=== PATIENT | female | born 1960 | race Caucasian/White ===

== ENCOUNTER 2016-05-20 18:10 | Emergency (ER) | payer OTHER ==
[~2016-05-20] VITALS: Ht 160 cm; Wt 71.4 kg
[2016-05-20 18:35] VITALS: Ht 160 cm; Wt 71.4 kg
[2016-05-20] MEDS ORDERED: ONDANSETRON 4 MG INJ IV STA (20:02)
[2016-05-20] MEDS ORDERED: SOD CHLORIDE 0.9% 1,000 ML IV STA (20:02)
[2016-05-20] MEDS ORDERED: DICLOFENAC SODIUM 37.5 MG/ML VIAL IV STA (20:27)
[2016-05-20] MEDS ORDERED: morphine 4 MG/ML VIAL IV STA (20:27)
[2016-05-20 21:04] LABS: ADD UMIC YES; URINE BILIRUBIN (Dip) 1+ (NEGATIVE); URINE BLOOD (Dip) NEGATIVE (NEGATIVE); URINE COLOR YELLOW (YELLOW); URINE GLUCOSE (Dip) NEGATIVE (NEGATIVE); URINE KETONES (Dip) NEGATIVE (NEGATIVE); URINE LEUKOCYTE ESTERASE (Dip) 1+ (NEGATIVE); URINE NITRITE (Dip) NEGATIVE (NEGATIVE); URINE TOTAL PROTEIN (Dip) NEGATIVE (NEGATIVE); URINE UROBILINOGEN (Dip) 1.0 E.U./dL (0.1-1.0)
[2016-05-20 21:25] LABS: POTASSIUM 3.8 mmol/L (3.5-5.1)
[2016-05-20 21:27] LABS: BILIRUBIN,INDIRECT 0.5 mg/dl (0-1.1); BILIRUBIN,TOTAL 0.5 mg/dl (0.2-1.3); CREATININE 0.7 mg/dl (0.44-1.00)
[2016-05-20 21:28] LABS: ALBUMIN/GLOBULIN RATIO 0.97; CALCIUM 9.4 mg/dl (8.4-10.2); TOTAL PROTEIN 8.1 g/dl (6.1-8.1)
[2016-05-20 21:38] LABS: BASOPHIL # 0.1 10^3/ul (0.0-0.1); BASOPHILS % 0.5 % (0.0-2.0); EOSINOPHILS # 0.2 10^3/ul (0.0-0.5); EOSINOPHILS % 1.6 % (0.0-7.0); HEMATOCRIT 43.5 % (37.0-47.0); HEMOGLOBIN 14.9 g/dl (12.0-16.0); LYMPHOCYTES # 2.2 10^3/ul (0.8-2.9); LYMPHOCYTES % 19.3 % (15.0-51.0); MEAN CORPUSCULAR HEMOGLOBIN 29.7 pg (29.0-33.0); MEAN CORPUSCULAR HGB CONC 34.2 g/dl (32.0-37.0); MEAN CORPUSCULAR VOLUME 86.9 fl (82.0-101.0); MEAN PLATELET VOLUME 8.8 fl (7.4-10.4); MONOCYTE # 0.9 10^3/ul (0.3-0.9); MONOCYTES % 7.5 % (0.0-11.0); NEUTROPHIL # 8.2 10^3/ul (1.6-7.5); NEUTROPHILS % 71.1 % (39.0-77.0); PLATELET COUNT 246 10^3/UL (140-440); RED BLOOD COUNT 5.01 10^6/ul (4.20-5.40); RED CELL DISTRIBUTION WIDTH 13.9 % (11.5-14.5); UNCORRECTED WBC 11.6 10^3/ul (4.8-10.8); WHITE BLOOD COUNT 11.6 10^3/ul (4.8-10.8)
[2016-05-20 21:39] LABS: CONDITION 1
--- NOTE | 2016-05-20 21:46 | RADRPT ---
PROCEDURE: US Abdomen (right upper quadrant). CLINICAL INDICATION: Right upper quadrant abdomen pain. TECHNIQUE: Multiple real-time longitudinal and transverse images of the right upper quadrant of e abdomen were acquired utilizing a curved array transducer. Images were reviewed on a high-resoluti on PACS workstation. COMPARISON: None FINDINGS: The liver is normal in size and echogenicity. There is no focal hepatic lesion. Color Doppler and pulsed Doppler sonography demonstrate normal an tegrade flow in the portal vein. Multiple gallstones are present in the gallbladder. There is no gallbladder wall thickening and the re is no fluid around the gallbladder. The bile ducts are normal with the common bile duct measuring 3.0 mm in diameter. The visualized portions of the pancreas are unremarkable with obscuration of the tail of the pancrea s. No free fluid is present. The right kidney measures 10.2 x 3.5 x 4.0 cm. There is normal echogenicity of the right kidney. There is no perinephric fluid collection. No hydronephrosis, mass, or calculus is seen. IMPRESSION: 1. Multiple gallstones in the gallbladder. No evidence of cholecystitis. 2. Otherwise normal right upper quadrant abdomen ultrasound. RPTAT: QQ .Adam Cervantes MD, MD Date Time Electronically viewed and signed by .Adam Cervantes MD, on 05/20/2016 21:46 .R/
[2016-05-20 22:04] LABS: BACTERIA,URINE RARE; ICTOTEST NEGATIVE (NEGATIVE); SQUAMOUS EPITHELIAL CELL,UR MODERATE; URINE RBCS 0-2 /HPF (0)
--- NOTE | 2016-05-20 22:46 | ERD ---
ER Documentation Chief Complaint Date/Time DATE: 05/20/16 TIME: 22:42 Chief Complaint sharp mid epigastric pain for past 3 days with vomting denies cp denies sob HPI This 55-year-old female nose that she has gallbladder disease and comes in for epigastric pain 3 days. She believes it is related to her gallbladder. She currently has no medications at home for pain or nausea. She does have some nausea. Has not vomited. He has no chest pain or shortness of breath. Has not had any fevers or chills. ROS All systems reviewed and are negative except as per history of present illness. Allergies Allergies: Coded Allergies: No Known Allergy (Unverified , 05/20/16) Physical Exam Vitals Vital Signs Date Time Temp Pulse Resp B/P Pulse Ox O2 Delivery O2 Flow Rate FiO2 05/20/16 18:35 98.4 80 18 135/71 98 Physical Exam Const: [] No distress Head: Atraumatic Eyes: Normal Conjunctiva ENT: Normal External Ears, Nose and Mouth. Neck: Full range of motion..~ No meningismus. Resp: Clear to auscultation bilaterally Cardio: Regular rate and rhythm, no murmurs Abd: Soft, moderate right upper quadrant epigastric tenderness without guarding or rebound, non distended. Normal bowel sounds Skin: No petechiae or rashes Back: No midline or flank tenderness Ext: No cyanosis, or edema Neur: Awake and alert Psych: Normal Mood and Affect Result Diagram: 05/20/16204405/20/162044 Results 24 hrs Laboratory Tests Test 05/20/16 20:32 05/20/16 20:45 Urine Bacteria RARE Urine Bilirubin 1+ Urine Clarity CLEAR Urine Color YELLOW Urine Glucose NEGATIVE% Urine Hemoglobin NEGATIVE Urine Ictotest NEGATIVE Urine Ketones NEGATIVE Urine Leukocyte Esterase 1+ Urine Microscopic RBC 0-2/HPF Urine Microscopic WBC 10-25/HPF Urine Nitrite NEGATIVE Urine Specific [place] >=1.030 Urine Squamous Epithelial Cells MODERATE Urine Total Protein NEGATIVE Urine Urobilinogen 1.0 E.U./dL Urine pH 5.0 Alanine Aminotransferase (ALT/SGPT) 314IU/L Albumin 4.0g/dl Albumin/Globulin Ratio 0.97 Alkaline Phosphatase 171IU/L Anion Gap 16 Aspartate Amino Transf (AST/SGOT) 321IU/L Basophils # 0.110^3/ul Basophils % 0.5% Blood Urea Nitrogen 15mg/dl Calcium Level 9.4mg/dl Carbon Dioxide Level 27mmol/L Chloride Level 106mmol/L Creatinine 0.70mg/dl Direct Bilirubin 0.00mg/dl Eosinophils # 0.210^3/ul Eosinophils % 1.6% Globulin 4.10g/dl Glucose Level 87mg/dl Hematocrit 43.5% Hemoglobin 14.9g/dl Indirect Bilirubin 0.5mg/dl Lipase 210U/L Lymphocytes # 2.210^3/ul Lymphocytes % 19.3% Mean Corpuscular Hemoglobin 29.7pg Mean Corpuscular Hemoglobin Concent 34.2g/dl Mean Corpuscular Volume 86.9fl Mean Platelet Volume 8.8fl Monocytes # 0.910^3/ul Monocytes % 7.5% Neutrophils # 8.210^3/ul Neutrophils % 71.1% Nucleated Red Blood Cells # 0.010^3/ul Nucleated Red Blood Cells % 0.0/100WBC Platelet Count 37119^3/UL Potassium Level 3.8mmol/L Red Blood Count 5.0110^6/ul Red Cell Distribution Width 13.9% Sodium Level 145mmol/L Total Bilirubin 0.5mg/dl Total Protein 8.1g/dl White Blood Count 11.610^3/ul Current Medications Medications (Trade) Dose Ordered Sig/Sandrine Route PRN Reason Start Time Stop Time Status Last Admin Dose Admin Sodium Chloride (NS) 1,000 ml @ 1,000 mls/hr Q1H STAT IV 05/20/16 20:02 05/20/16 21:01 DC 05/20/16 20:53 Ondansetron HCl (Zofran Inj) 4 mg ONCE STAT IV 05/20/16 20:02 05/20/16 20:04 DC 05/20/16 20:52 Morphine Sulfate (morphine) 4 mg ONCE STAT IV 05/20/16 20:27 05/20/16 20:29 DC 05/20/16 20:53 Diclofenac Sodium (Dyloject) 37.5 mg ONCE STAT IV 05/20/16 20:27 05/20/16 20:29 DC 05/20/16 20:52 Procedures/MDM Biliary colic with mild elevated liver enzymes and 55-year-old female. She was given morphine, diclofenac IV as well as Zofran emergency room. She was complete asymptomatic after that. Ultrasound shows no signs of acute cholecystitis she does have elevated liver enzymes. She's had no fevers or chills and I doubt acute cholecystitis at this time. I'm going to discharge her with [place], naproxen, Zofran ODT and Macrobid.. Analysis shows evidence of UTI with 10-25 white blood cells per high-power field. Is artery began established care with the general surgeon. Discharge with primary care and surgery follow- up as well as term precautions to the ER for any severe breakthrough pain or fevers. [place] ultrasound interpretation: Gallstones with no signs of obstruction, no dilated duct appears colic fluid, no wall thickening Departure Diagnosis: Primary Impression: Biliary colic Additional Impressions: Acute abdominal pain UTI (urinary tract infection) Condition: Stable OLIVA CUTLER DO May 20, 2016 22:46
[2016-05-20] MEDS ORDERED: ONDA4TAB14 PO (22:47)
[2016-05-20] MEDS ORDERED: HYDR-906 PO (22:47)
[2016-05-20] MEDS ORDERED: NAPR-688 PO (22:47)
[2016-05-20 23:10] VITALS: BP 125/76; PULSE 77; RESP 16; TEMP 97.6
== END 2016-05-20 23:10 | disposition home or self-care (01) ==
LOC: E/R 18:10
DX: K80.50 Calculus of bile duct without cholangitis or cholecystitis without obstruction (principal); R10.11 Right upper quadrant pain; N39.0 Urinary tract infection, site not specified; R11.10 Vomiting, unspecified
CPT/HCPCS: 76705; 80053; 81001; 83690; 85025; J2270; J2405; J7030; Z7610; 36415; 81003; 96374; 96375

== ENCOUNTER 2016-05-22 17:56 | Inpatient (IN) | payer OTHER ==
[~2016-05-22] VITALS: Ht 154.9 cm; Wt 70.5 kg
[~2016-05-22 17:56] MED LIST: HYDR-906 PO; NAPR-688 PO; ONDA4TAB14 PO
[2016-05-22 18:36] VITALS: Ht 154.9 cm; Wt 70.5 kg
[2016-05-22] MEDS ORDERED: SOD CHLORIDE 0.9% 1,000 ML IV STA (22:06)
[2016-05-22] MEDS ORDERED: morphine 4 MG/ML VIAL IV STA (22:06)
[2016-05-22] MEDS ORDERED: ONDANSETRON 4 MG INJ IV STA (22:06)
[2016-05-22 22:33] LABS: BASOPHIL # 0.1 10^3/ul (0.0-0.1); BASOPHILS % 0.8 % (0.0-2.0); EOSINOPHILS # 0.2 10^3/ul (0.0-0.5); EOSINOPHILS % 1.5 % (0.0-7.0); HEMATOCRIT 43.5 % (37.0-47.0); HEMOGLOBIN 14.4 g/dl (12.0-16.0); LYMPHOCYTES # 3.3 10^3/ul (0.8-2.9); LYMPHOCYTES % 29.7 % (15.0-51.0); MEAN CORPUSCULAR HEMOGLOBIN 29.2 pg (29.0-33.0); MEAN CORPUSCULAR HGB CONC 33.1 g/dl (32.0-37.0); MEAN CORPUSCULAR VOLUME 88.3 fl (82.0-101.0); MEAN PLATELET VOLUME 8.6 fl (7.4-10.4); MONOCYTE # 0.9 10^3/ul (0.3-0.9); MONOCYTES % 7.9 % (0.0-11.0); NEUTROPHIL # 6.7 10^3/ul (1.6-7.5); NEUTROPHILS % 60.1 % (39.0-77.0); PLATELET COUNT 268 10^3/UL (140-440); RED BLOOD COUNT 4.93 10^6/ul (4.20-5.40); RED CELL DISTRIBUTION WIDTH 13.7 % (11.5-14.5); UNCORRECTED WBC 11.2 10^3/ul (4.8-10.8); WHITE BLOOD COUNT 11.2 10^3/ul (4.8-10.8)
[2016-05-22 22:40] LABS: CONDITION 1
[2016-05-22 22:42] LABS: ALBUMIN/GLOBULIN RATIO 0.95; BILIRUBIN,DIRECT 0.3 mg/dl (0.00-0.20); BILIRUBIN,INDIRECT 0.6 mg/dl (0-1.1); BILIRUBIN,TOTAL 0.9 mg/dl (0.2-1.3); CREATININE 0.69 mg/dl (0.44-1.00); TOTAL PROTEIN 8.2 g/dl (6.1-8.1)
[2016-05-22 22:43] LABS: CALCIUM 9.1 mg/dl (8.4-10.2)
--- NOTE | 2016-05-22 23:58 | ERA ---
ER Documentation Chief Complaint Date/Time DATE: 05/22/16 TIME: 23:57 Chief Complaint epigastric pain with nausea, hx of gallstones, was here on Saturday. HPI This is a 55-year-old female who comes in with complaints of epigastric abdominal pain with associated nausea. Pain is mild to moderate intensity. Nonradiating. Patient has a history of gallstones and was seen here Saturday for similar complaints. ROS All systems reviewed and are negative except as per history of present illness. Medications Home Meds Active Scripts Ondansetron (Ondansetron Odt) 4 Mg Tab.rapdis, 4 MG PO Q6H Y for NAUSEA AND/OR VOMITING, #10 TAB Prov:OLIVA CUTLER DO 05/20/16 Naproxen* (Naproxen*) 500 Mg Tablet, 500 MG PO BID Y for PAIN, #20 TAB Prov:OLIVA CUTLER DO 05/20/16 Hydrocodone/Acetaminophen ([place] 5-325 Tablet) 1 Each Tablet, 1 EACH PO Q6 for SEVERE PAIN LEVEL 7-10, #20 TAB Prov:OLIAV CUTLER DO 05/20/16 Allergies Allergies: Coded Allergies: No Known Allergy (Unverified , 05/22/16) PMhx/Soc History of Surgery: Yes (, bilat mastoid lumpectomy) Anesthesia Reaction: No Hx Neurological Disorder: No Hx Respiratory Disorders: No Hx Cardiac Disorders: No Hx Psychiatric Problems: No Hx Miscellaneous Medical Probl: Yes (Gallstones ) Hx Alcohol Use: No Hx Substance Use: No Hx Tobacco Use: No Smoking Status: Never smoker Physical Exam Vitals Vital Signs Date Time Temp Pulse Resp B/P Pulse Ox O2 Delivery O2 Flow Rate FiO2 05/22/16 18:36 98.8 77 18 130/78 97 Physical Exam Const: [] Head: Atraumatic Eyes: Normal Conjunctiva ENT: Normal External Ears, Nose and Mouth. Neck: Full range of motion..~ No meningismus. Resp: Clear to auscultation bilaterally Cardio: Regular rate and rhythm, no murmurs Abd: Soft, non tender, non distended. Normal bowel sounds Skin: No petechiae or rashes Back: No midline or flank tenderness Ext: No cyanosis, or edema Neur: Awake and alert Psych: Normal Mood and Affect Result Diagram: 1/0 05/22/16 2220 Results 24 hrs Laboratory Tests Test 05/22/16 22:20 Alanine Aminotransferase (ALT/SGPT) 397IU/L Albumin 4.0g/dl Albumin/Globulin Ratio 0.95 Alkaline Phosphatase 193IU/L Anion Gap 17 Aspartate Amino Transf (AST/SGOT) 314IU/L Basophils # 0.110^3/ul Basophils % 0.8% Blood Urea Nitrogen 11mg/dl Calcium Level 9.1mg/dl Carbon Dioxide Level 29mmol/L Chloride Level 102mmol/L Creatinine 0.69mg/dl Direct Bilirubin 0.30mg/dl Eosinophils # 0.210^3/ul Eosinophils % 1.5% Globulin 4.20g/dl Glucose Level 95mg/dl Hematocrit 43.5% Hemoglobin 14.4g/dl Indirect Bilirubin 0.6mg/dl Lipase 171U/L Lymphocytes # 3.310^3/ul Lymphocytes % 29.7% Mean Corpuscular Hemoglobin 29.2pg Mean Corpuscular Hemoglobin Concent 33.1g/dl Mean Corpuscular Volume 88.3fl Mean Platelet Volume 8.6fl Monocytes # 0.910^3/ul Monocytes % 7.9% Neutrophils # 6.710^3/ul Neutrophils % 60.1% Nucleated Red Blood Cells # 0.010^3/ul Nucleated Red Blood Cells % 0.0/100WBC Platelet Count 77818^3/UL Potassium Level 4.0mmol/L Red Blood Count 4.9310^6/ul Red Cell Distribution Width 13.7% Sodium Level 144mmol/L Total Bilirubin 0.9mg/dl Total Protein 8.2g/dl White Blood Count 11.210^3/ul Current Medications Medications (Trade) Dose Ordered Sig/Sandrine Route PRN Reason Start Time Stop Time Status Last Admin Dose Admin Sodium Chloride (NS) 1,000 ml @ 1,000 mls/hr Q1H STAT IV 05/22/16 22:06 05/22/16 23:05 DC 05/22/16 22:21 Morphine Sulfate (morphine) 4 mg ONCE STAT IV 05/22/16 22:06 05/22/16 22:07 DC 05/22/16 22:22 Ondansetron HCl (Zofran Inj) 4 mg ONCE STAT IV 05/22/16 22:06 1/31/17 22:07 DC 05/22/16 22:21 Procedures/MDM Medical decision-making: This is a 55-year-old female who has an ultrasound showing multiple gallstones from 2 days ago. LFTs remain elevated 2 days post her last visit. At this point patient is to be admitted for early intervention. Patient will be admitted to hospitalist. Surgeon on-call has been notified as well. Departure Diagnosis: Primary Impression: Abdominal pain Qualified Code: R10.11 - Right upper quadrant abdominal pain Additional Impressions: Transaminitis Biliary colic MEREDITH WAY May 22, 2016 23:58
[2016-05-23 00:28] VITALS: TEMP 98.1
[2016-05-23 01:18] VITALS: BP 133/66; RESP 16
[2016-05-23] MEDS ORDERED: KETOROLAC 15 MG INJ IV PRN (02:00)
[2016-05-23] MEDS ORDERED: ACETAMINOPHEN 650 MG SUPP PR PRN (02:00)
[2016-05-23] MEDS ORDERED: morphine 4 MG/ML VIAL IV PRN (02:00)
[2016-05-23] MEDS: DEXTROSE 5%-0.45% NACL 1,000 ML IV SCH ×3 (02:33→16:47)
[2016-05-23 06:23] LABS: BASOPHILS % 0.4 % (0.0-2.0); EOSINOPHILS # 0.2 10^3/ul (0.0-0.5); EOSINOPHILS % 2.3 % (0.0-7.0); HEMATOCRIT 37.9 % (37.0-47.0); HEMOGLOBIN 12.6 g/dl (12.0-16.0); LYMPHOCYTES # 2.9 10^3/ul (0.8-2.9); LYMPHOCYTES % 40.8 % (15.0-51.0); MEAN CORPUSCULAR HEMOGLOBIN 29.4 pg (29.0-33.0); MEAN CORPUSCULAR HGB CONC 33.2 g/dl (32.0-37.0); MEAN CORPUSCULAR VOLUME 88.6 fl (82.0-101.0); MEAN PLATELET VOLUME 8.7 fl (7.4-10.4); MONOCYTE # 0.7 10^3/ul (0.3-0.9); MONOCYTES % 9.5 % (0.0-11.0); NEUTROPHIL # 3.3 10^3/ul (1.6-7.5); PLATELET COUNT 239 10^3/UL (140-440); RED BLOOD COUNT 4.28 10^6/ul (4.20-5.40); RED CELL DISTRIBUTION WIDTH 13.6 % (11.5-14.5)
[2016-05-23 06:41] LABS: CONDITION 1
[2016-05-23 06:50] LABS: ALBUMIN 3.2 g/dl (3.3-4.9)
[2016-05-23 06:51] LABS: POTASSIUM 4.3 mmol/L (3.5-5.1)
[2016-05-23 06:53] LABS: ALBUMIN/GLOBULIN RATIO 1.06; BILIRUBIN,INDIRECT 0.5 mg/dl (0-1.1); BILIRUBIN,TOTAL 0.5 mg/dl (0.2-1.3); CREATININE 0.65 mg/dl (0.44-1.00); TOTAL PROTEIN 6.2 g/dl (6.1-8.1)
[2016-05-23 06:54] LABS: CALCIUM 8.4 mg/dl (8.4-10.2)
[2016-05-23 08:11] VITALS: BP 106/63; RESP 18
--- NOTE | 2016-05-23 10:01 | HP ---
DATE OF ADMISSION: 05/22/2016 TIME SEEN: 4 a.m. CHIEF COMPLAINT: Abdominal pain. HISTORY OF PRESENT ILLNESS: The patient is a 55-year-old female with a history of gallstones, C-sec tion, and breast cyst removal who presented to the emergency department with abdominal pain and naus ea. The patient actually came here to the ER 2 days ago with abdominal pain of 3 days' duration and vomiting. At that time, a right upper quadrant ultrasound was done and it showed multiple gallston es in the gallbladder without evidence of cholecystitis. At that time, she was also diagnosed with UTI. The patient, however, was discharged to follow up with her primary care doctor, which was a [facility] followup; however, the pain persisted and as such she came here for evaluation. The patient d id have abnormal liver enzymes with AST and ALT in the 300s 2 days ago and even now pretty much the same, in the 300s. Hemoglobin is within normal limits. Lipase is also within normal limits. A mayank gical consult was placed with Dr. Morrow, and the patient was admitted for further management. REVIEW OF SYSTEMS: A 12-point review was performed and negative except as mentioned in the HPI. PAST MEDICAL HISTORY: Per HPI. PAST SURGICAL HISTORY: and breast cyst removal. SOCIAL HISTORY: Denied history of tobacco, alcohol, or illicit drug use. ALLERGIES: NO KNOWN DRUG ALLERGIES. MEDICATIONS: The patient was recently given: 1. Zofran. 2. [place]. 3. Naproxen. PHYSICAL EXAMINATION: VITAL SIGNS: Stable. GENERAL: No acute distress, sleepy but arousable, and answering questions appropriately. HEENT: No obvious head deformity. Pupils react to light. Extraocular muscles intact. CARDIOVASCULAR: Regular rate and rhythm. No extra sounds. LUNGS: Clear. ABDOMEN: Soft. There is tenderness to palpation mainly in the right upper quadrant area and also i n the epigastric area with no guarding, no rigidity, no rebound tenderness. There are positive gilson l sounds. EXTREMITIES: No edema. NEUROLOGIC: No focal deficits. LABORATORY: AST 314, ALT 397, alkaline phosphatase 193. WBC 11.2. Otherwise, CBC and CMP within n ormal limits. IMAGING: From 05/20/2016 shows multiple gallstones in the gallbladder. IMPRESSION: 1. Cholelithiasis with cholecystitis. 2. Abnormal liver enzymes, most likely secondary to above. 3. Mild leukocytosis, secondary to above. PLAN: N.p.o. with IV fluids. We will provide pain medication and antiemetics as needed. Currently , she is awaiting surgical evaluation. Will order a HIDA scan and MRCP. GI consult as needed. Further workup and management per clinical course. Dictated By: MEREDITH LEONE/IGNACIO Conf#: [id number] DID#: [id number]
--- NOTE | 2016-05-23 12:49 | RADRPT ---
PROCEDURE: HIDA scan CLINICAL INDICATION: 55 -year-old patient with abdominal pain. TECHNIQUE: Following the intravenous injection of 8.0 mCi of Tc-99m mebrofenin, multiple images of the abdomen were obtained up to 90 minutes post injection. COMPARISON: No prior studies. FINDINGS: The liver is promptly visualized, demonstrates homogeneous distribution of radionuclide. There is visualization of the common bile duct and gastrointestinal activity within normal time. The gallbladder is not visualized up to 90 minutes post injection. IMPRESSION: 1. Nonvisualization of the gallbladder up to 90 minutes post injection. 2. No evidence of common bile duct obstruction. Delayed images to follow. RPTAT: HH .Giselle Acuña MD, Date Time Electronically viewed and signed by .Giselle Acuña MD, on 05/23/2016 12:48 .L/
--- NOTE | 2016-05-23 16:39 | PN ---
Date/Time of Note Date/Time of Note DATE: 05/23/16 TIME: 16:30 Assessment/Plan VTE Prophylaxis VTE Prophylaxis Intervention: SCD's Lines/Catheters IV Catheter Type (from Nrs): Peripheral IV Assessment/Plan Chief Complaint/Hosp Course 1. Cholelithiasis with likely cholecystitis -HIDA is positive, F/U on MRCP -Surgery consult with Dr Morrow -Echo and EKG as pt has an unclear Hx of a Cardiac issue 2. Abnormal liver enzymes -MRCP to eval for docolithiasis -GI consult 3. Mild leukocytosis-resolved PPx- SCD's Problems: Subjective 24 Hr Interval Summary Constitutional: no complaints Exam/Review of Systems Vital Signs Vitals Vital Signs Date Time Temp Pulse Resp B/P Pulse Ox O2 Delivery O2 Flow Rate FiO2 05/23/16 08:11 98.0 67 18 106/63 97 05/23/16 00:28 Room Air Intake and Output 05/22/16 05/22/16 05/23/16 15:00 23:00 07:00 Intake Total 300 ml Balance 300 ml Exam Constitutional: alert, oriented Respiratory: clear to auscultation Cardiovascular: regular rate and rhythm Gastrointestinal: soft, No distended Musculoskeletal: nl extremities to inspection Results Result Diagram: 05/23/16 0535 05/23/16 0535 Results 24 hrs Laboratory Tests Test 05/22/16 22:20 05/23/16 05:35 Alanine Aminotransferase (ALT/SGPT) 397 H 365 H Albumin 4.0 3.2 L Albumin/Globulin Ratio 0.95 1.06 Alkaline Phosphatase 193 H 173 H Anion Gap 17 H 12 Aspartate Amino Transf (AST/SGOT) 314 H 315 H Basophils # 0.1 0.0 Basophils % 0.8 0.4 Blood Urea Nitrogen 11 10 Calcium Level 9.1 8.4 Carbon Dioxide Level 29 28 Chloride Level 102 107 Creatinine 0.69 0.65 Direct Bilirubin 0.30 H 0.00 # Eosinophils # 0.2 0.2 Eosinophils % 1.5 2.3 Globulin 4.20 H 3.00 Glucose Level 95 90 Hematocrit 43.5 37.9 Hemoglobin 14.4 12.6 Indirect Bilirubin 0.6 0.5 Lipase 171 Lymphocytes # 3.3 H 2.9 Lymphocytes % 29.7 40.8 Mean Corpuscular Hemoglobin 29.2 29.4 Mean Corpuscular Hemoglobin Concent 33.1 33.2 Mean Corpuscular Volume 88.3 88.6 Mean Platelet Volume 8.6 8.7 Monocytes # 0.9 0.7 Monocytes % 7.9 9.5 Neutrophils # 6.7 3.3 Neutrophils % 60.1 47.0 Nucleated Red Blood Cells # 0.0 0.0 Nucleated Red Blood Cells % 0.0 0.0 Platelet Count 268 239 Potassium Level 4.0 4.3 Red Blood Count 4.93 4.28 Red Cell Distribution Width 13.7 13.6 Sodium Level 144 143 Total Bilirubin 0.9 0.5 Total Protein 8.2 H 6.2 # White Blood Count 11.2 H 7.0 # Medications Medications Current Medications Dextrose/Sodium Chloride (D5-1/2ns) 1,000 ml @ 100 mls/hr Q10H IV Last administered on 05/23/16 02:33; Admin Dose 100 MLS/HR; Start 05/23/16 at 02:00 Morphine Sulfate (morphine) 3 mg Q4H PRN IV PAIN; Start 05/23/16 at 02:00 Ondansetron HCl (Zofran Inj) 4 mg Q6H PRN IV NAUSEA AND/OR VOMITING; Start 05/23 at 02:00 Ketorolac Tromethamine (Toradol) 15 mg Q6H PRN IV PAIN; Start 05/23/16 at 02:00 ; Stop 05/26/16 at 01:59 Acetaminophen (Tylenol Supp) 650 mg Q6H PRN [place] FEVER GREATER THAN 100.4; Start 05/23/16 at 02:00 LUISITO NGUYEN May 23, 2016 16:39
[2016-05-23 19:00] VITALS: BP 126/69; RESP 16
--- NOTE | 2016-05-23 22:13 | CONS ---
[facility] INITIAL INPATIENT CONSULTATION NOTE DATE OF CONSULTATION: 05/23/2016 PLACE OF SERVICE: [facility], 6th floor. ASSESSMENT AND PLAN: A very pleasant 55-year-old lady with comorbidity of BMI 29.4 and previous and breast cyst removal with what appears to be acute cholecystitis, plus or minus choledocholithiasis. Given the elevated alkaline phosphatase, it would be important for us to evaluate the common bile duct to make sure there is no choledocholithiasis. For this reason, I recommended an MRCP as well as consideration for GI consultation. If the common bile duct can be demonstrated to be clear, the patient can certainly benefit from a laparoscopic cholecystectomy, which should be done during this admission. Note that I personally discussed the patient's care with Dr. Carpio who graciously agreed to have me continue caring for the patient and doing the operation. I also cleared this by the patient herself and her family. I answered all their questions and I believe that they understand the recommendations and agree with the plans. With above assessment, I recommend the followin. Continue with MRCP. 2. Consider gastroenterology consultation. 3. Once common bile duct has been adequately evaluated and shown to be cleared to have the patient undergo a laparoscopic, possible open cholecystectomy. 4. Possible consideration for cardiac evaluation. Thank you again for allowing me to participate in the care of this very pleasant lady and her wonderful family. If there are any questions, please call me at [phone]. TOTAL VISIT TIME: 45 minutes of which more than half was spent in [id number] discussion with the patient, discussions with her , as well as coordination of care between multiple physicians and providers. DATE OF ADMISSION: 05/22/2016 HISTORY OF PRESENT ILLNESS: The patient is a very pleasant 55-year-old lady with comorbidity of BMI 29.4, cholelithiasis, previous , and breast cyst removal, who was admitted through the emergency department at [facility] with abdominal pain associated with nausea. Note that the patient has had on and off abdominal pain for the last number of weeks. Incidentally, she was evaluated by one of our colleagues, Dr. Wilbert Carpio, in April and the plan was for the patient to undergo an elective laparoscopic cholecystectomy, after preoperative workup that she was requested to include cardiac clearance given the patient's abnormality seen on previous workup ( details are scant). The patient herself had experienced progressively increased pain enough to warrant a visit to the emergency department. In the emergency department, the patient was found to have a white blood cell count of 11.2 and elevated AST and ALT in the 300s, alkaline phosphatase of 193. Workup also included a gallbladder ultrasound that was done 2 days prior, during another visit to the emergency department, that showed presence of gallstones and no evidence of cholecystitis. I was kindly asked to consult. During my visit, the patient reported no significant pain and that she was having adequate control with pain medications. No other major complaints. PAST MEDICAL HISTORY: BMI 29.4. PAST SURGICAL HISTORY: 1. Status post breast cyst removal. 2. Status post section. ALLERGIES: NO KNOWN DRUG ALLERGIES. MEDICATIONS: 1. [place]. 2. Naprosyn. 3. Ondansetron. SOCIAL HISTORY: The patient is and lives with her family. She does not report any smoking, drinking, or intravenous drug use. FAMILY HISTORY: No major medical, surgical, or oncologic history reported in the family. REVIEW OF SYSTEMS: Other than the above-mentioned, there are no other pertinent positives or pertinent negatives in a complete 14-point review of systems. PHYSICAL EXAMINATION: GENERAL: The patient appears to be a very pleasant lady of [place] descent, appearing stated age, lying in bed comfortably, and in no acute distress. BMI is 29.4. VITAL SIGNS: She is afebrile and her vital signs are stable. HEENT: Normocephalic and atraumatic. Extraocular muscles and hearing are grossly intact bilaterally and symmetrically. Sclerae are nonicteric. Oral cavity is clear; oral mucosa appeared to be pink and moist. Dentition: fair. NECK: Supple. There is no lymphadenopathy or JVD. There is no submental, submandibular or supraclavicular lymphadenopathy. CHEST: Rises symmetrically with each breath; patient is breathing comfortably. There are no audible wheezes, rales or rhonchi on the gross exam. HEART: HPulse is regular and palpable on the right wrist. Capillary refill was normal. Carotid pulses are palpable bilaterally and symmetrically in the neck. EXTREMITIES: Lower extremities contain no pitting edema around the ankles bilaterally and symmetrically. ABDOMEN: Soft, nondistended, and minimally tender in the right upper quadrant. There are no peritoneal signs or guarding. No evidence of organomegaly, caput medusae, engorged subcutaneous veins, or ascites. SKIN: Appears to be pink and feels warm to touch. NEUROLOGIC: Awake, alert, and follows commands appropriately. LABORATORY DATA: Reviewed above. IMAGING: Reviewed above. Note that I personally reviewed all the images and I agree in general with their overall reported findings. Note that the patient also had a HIDA scan on 05/23/2016 that showed nonvisualization of the gallbladder. We can see tracing of the bile going into the small intestine. Dictated By: SHAUN MAY/IGNACIO Conf#: [id number] DID#: [id number]
[2016-05-24] MEDS: DEXTROSE 5%-0.45% NACL 1,000 ML IV SCH ×2 (03:03→14:13)
[2016-05-24 06:03] LABS: BASOPHILS % 0.7 % (0.0-2.0); EOSINOPHILS # 0.2 10^3/ul (0.0-0.5); EOSINOPHILS % 3.8 % (0.0-7.0); HEMATOCRIT 39.5 % (37.0-47.0); HEMOGLOBIN 13.1 g/dl (12.0-16.0); LYMPHOCYTES # 2.3 10^3/ul (0.8-2.9); LYMPHOCYTES % 36.7 % (15.0-51.0); MEAN CORPUSCULAR HEMOGLOBIN 29.4 pg (29.0-33.0); MEAN CORPUSCULAR HGB CONC 33.2 g/dl (32.0-37.0); MEAN CORPUSCULAR VOLUME 88.3 fl (82.0-101.0); MEAN PLATELET VOLUME 8.5 fl (7.4-10.4); MONOCYTE # 0.5 10^3/ul (0.3-0.9); MONOCYTES % 7.8 % (0.0-11.0); NEUTROPHIL # 3.2 10^3/ul (1.6-7.5); PLATELET COUNT 242 10^3/UL (140-440); RED BLOOD COUNT 4.48 10^6/ul (4.20-5.40); RED CELL DISTRIBUTION WIDTH 13.6 % (11.5-14.5); UNCORRECTED WBC 6.2 10^3/ul (4.8-10.8); WHITE BLOOD COUNT 6.2 10^3/ul (4.8-10.8)
[2016-05-24 06:19] LABS: ALBUMIN 3.2 g/dl (3.3-4.9); POTASSIUM 4.6 mmol/L (3.5-5.1)
[2016-05-24 06:21] LABS: CREATININE 0.71 mg/dl (0.44-1.00)
[2016-05-24 06:22] LABS: ALBUMIN/GLOBULIN RATIO 0.88; BILIRUBIN,INDIRECT 0.5 mg/dl (0-1.1); BILIRUBIN,TOTAL 0.5 mg/dl (0.2-1.3); TOTAL PROTEIN 6.8 g/dl (6.1-8.1)
[2016-05-24 07:02] LABS: CONDITION 1
[2016-05-24 07:49] VITALS: BP 138/65; RESP 16
--- NOTE | 2016-05-24 09:31 | CONS ---
Date/Time of Note Date/Time of Note DATE: 05/24/16 TIME: 09:25 Assessment/Plan Assessment/Plan Additional Assessment/Plan Abdominal pain Nausea Vomiting Evaluate cholelithiasis versus with or without choledocholithiasis * MRCP to evaluate for choledocholithiasis, in process * Trend lipase and amylase * Surgery following * HIDA: 05-23-16: 1. Nonvisualization of the gallbladder up to 90 minutes post injection. 2. No evidence of common bile duct obstruction. * ERCP if clinically indicated. Patient advised of risks/benefits/alternatives of procedure and is agreeable to proceed Transaminitis * Likely secondary to above. * Acute hepatitis panel * Trend LFTs Further recommendations depend on clinical course Patient seen in collaboration with Dr. Lima Consultation Date/Type/Reason Admit Date/Time May 22, 2016 at 23:38 Initial Consult Date Reason for Consultation Abdominal pain 24 HR Interval Summary Free Text/Dictation 55-year-old Nepali-speaking female presented to ED with complaints of abdominal pain, nausea, and nonbloody bilious vomiting 1 episode . Patient has PMH of gallstones, , and breast cyst removal. Patient was previously treated in ED 2 days ago for same complaints and was treated for UTI and discharged home. Patient was in the process of getting evaluation for outpatient cholecystectomy. At bedside, patient denies abdominal pain, nausea, vomiting. She states symptoms are present only when she is eating and she is currently n.p.o. Patient denies diarrhea, hematemesis, sick contacts, travel outside the [place], chest pain, and shortness of breath. Patient presently waiting for MRCP and cardiac evaluation. Exam/Review of Systems Vital Signs Vitals Vital Signs Date Time Temp Pulse Resp B/P Pulse Ox O2 Delivery O2 Flow Rate FiO2 05/24/16 07:49 98.0 63 16 138/65 98 05/23/16 00:28 Room Air Intake and Output 05/23/16 05/23/16 05/24/16 15:00 23:00 07:00 Intake Total 950 ml 1000 ml Output Total 3 ml 1300 ml Balance 947 ml -300 ml Exam Constitutional: alert, oriented, well developed Psych: nl mood/affect Head: normocephalic Eyes: EOMI, nl conjunctiva, nl lids, nl sclera ENMT: nl external ears & nose, nl lips & teeth, nl nasal mucosa & septum Respiratory: normal air movement Cardiovascular: regular rate and rhythm Gastrointestinal: non-tender, soft Neurological: CASINO CASHIER II-XII intact Results Result Diagram: 05/24/16 0510 05/24/16 0510 Results 24 hrs Laboratory Tests Test 05/24/16 05:10 Alanine Aminotransferase (ALT/SGPT) 264 H Albumin 3.2 L Albumin/Globulin Ratio 0.88 Alkaline Phosphatase 152 H Anion Gap 14 Aspartate Amino Transf (AST/SGOT) 113 H Basophils # 0.0 Basophils % 0.7 Blood Urea Nitrogen 6 L Calcium Level 9.0 Carbon Dioxide Level 28 Chloride Level 108 Creatinine 0.71 Direct Bilirubin 0.00 Eosinophils # 0.2 Eosinophils % 3.8 Globulin 3.60 H Glucose Level 111 Hematocrit 39.5 Hemoglobin 13.1 Indirect Bilirubin 0.5 Lymphocytes # 2.3 Lymphocytes % 36.7 Magnesium Level 2.0 Mean Corpuscular Hemoglobin 29.4 Mean Corpuscular Hemoglobin Concent 33.2 Mean Corpuscular Volume 88.3 Mean Platelet Volume 8.5 Monocytes # 0.5 Monocytes % 7.8 Neutrophils # 3.2 Neutrophils % 51.0 Nucleated Red Blood Cells # 0.0 Nucleated Red Blood Cells % 0.0 Platelet Count 242 Potassium Level 4.6 Red Blood Count 4.48 Red Cell Distribution Width 13.6 Sodium Level 145 H Total Bilirubin 0.5 Total Protein 6.8 White Blood Count 6.2 Medications Medications Current Medications Dextrose/Sodium Chloride (D5-1/2ns) 1,000 ml @ 100 mls/hr Q10H IV Last administered on 05/24/16 03:03; Admin Dose 100 MLS/HR; Start 05/23/16 at 02:00 Morphine Sulfate (morphine) 3 mg Q4H PRN IV PAIN; Start 05/23/16 at 02:00 Ondansetron HCl (Zofran Inj) 4 mg Q6H PRN IV NAUSEA AND/OR VOMITING; Start 05/23 at 02:00 Ketorolac Tromethamine (Toradol) 15 mg Q6H PRN IV PAIN; Start 05/23/16 at 02:00 ; Stop 05/26/16 at 01:59 Acetaminophen (Tylenol Supp) 650 mg Q6H PRN [place] FEVER GREATER THAN 100.4; Start 05/23/16 at 02:00 MARIE OSBORN May 24, 2016 09:30
[2016-05-24 11:59] LABS: HAAIG REFLEX REFLEX FILED
[2016-05-24 12:22] LABS: AMYLASE 61 U/L (11-123)
[2016-05-24 13:13] LABS: HEPATITIS B CORE ANTIBODY NEGATIVE (NEGATIVE)
--- NOTE | 2016-05-24 17:14 | PN ---
Date/Time of Note Date/Time of Note DATE: 05/24/16 TIME: 17:09 Assessment/Plan Lines/Catheters IV [facility]ter Type (from [facility]): Peripheral IV Assessment/Plan Assessment/Plan [facility] Progress Note Date of Service: 05/24/16 Today's Impression & Plan: Overall stable. Awaiting results of MRCP to schedule patient for either ERCP or for lap alicia only. Answered all questions. With above assessment, I've recommended the following for today: 1. Cont current plans 2. ERCP followed by lap alicia if indicated by MRCP; otherwise, lap alicia only Thank you again for your great care of this very pleasant patient and wonderful family. If there are any questions, please feel free to call me at [phone]. TOTAL VISIT TIME: 20 minutes of which more than half was spent in [id number] discussion with the patient, possibly including family, as well as coordination of care between multiple physicians and providers. Disclaimer: Inadvertent spelling or grammatical errors are likely due to EHR/ dictation software use and do not reflect on the overall quality of patient care. Updated Clinical Summary: A very pleasant 55-year-old lady with comorbidity of BMI 29.4, known cholelithiasis, previous , and breast cyst removal, admitted through the emergency department at [facility] on 05/22/15 with cholelithiasis, possible acute vs. chronic cholecystitis and elevated alk phos indicating possible choledocholithiasis. Comorbidities: 1. BMI 29.4. 2. Status post breast cyst removal. 3. Status post section. Subjective: No major events or complaints; no major abd pain and under control with medications; no n/v/d; no sob or cp; + flatus; - BM; + activity Objective: Vitals: See below Exam: GENERAL: On exam, the patient was laying in bed and appeared to be comfortable and in no acute distress. ABDOMEN: Soft, minimally tender and nondistended. There are no peritoneal signs or guarding. SKIN: Skin appears to be pink and feels warm to touch. NEUROLOGIC: Patient is awake, alert, and follows commands appropriately. Exam/Review of Systems Vital Signs Vitals Vital Signs Date Time Temp Pulse Resp B/P Pulse Ox O2 Delivery O2 Flow Rate FiO2 05/24/16 07:49 98.0 63 16 138/65 98 05/23/16 00:28 Room Air Intake and Output 05/23/16 05/23/16 05/24/16 15:00 23:00 07:00 Intake Total 950 ml 1000 ml Output Total 3 ml 1300 ml Balance 947 ml -300 ml Results Result Diagram: 05/24/16 0510 05/24/16 0510 SHAUN LAUGHLIN M.D. May 24, 2016 17:14
--- NOTE | 2016-05-24 17:25 | RADRPT ---
PROCEDURE: MRCP CLINICAL INDICATION: Abdominal pain TECHNIQUE: MRCP was performed on the a high-resolution, high Bree field strength scanner. Patien t was examined without contrast. 3-D coronal rotating MIP images of the biliary tree are available for review. COMPARISON: None FINDINGS: The liver is normal in size and signal intensity. No focal liver lesions or intrahepatic biliary di latation is seen. Multiple gallstones are seen. Gallbladder wall thickening is seen with perichole cystic edema. The common bile duct is normal in course and caliber. No filling defect in the common bile duct is seen. The spleen, pancreas, adrenal glands and kidneys normal in size and signal intensity. The kidneys a re normal in size and contour and are without evidence of hydronephrosis. No abnormally enlarged lym ph nodes or fluid collections are seen. IMPRESSION: 1. MRI findings which may represent acute cholecystitis in the correct clinical setting. 2. No evidence of biliary dilatation or choledocholithiasis. RPTAT: HPNM Physician Alia Date Time Electronically viewed and signed by Physician Alia on 05/24/2016 17:25 /
--- NOTE | 2016-05-24 18:16 | PN ---
Date/Time of Note Date/Time of Note DATE: 05/24/16 TIME: 18:11 Assessment/Plan VTE Prophylaxis VTE Prophylaxis Intervention: SCD's Lines/Catheters IV Catheter Type (from Nrs): Peripheral IV Assessment/Plan Chief Complaint/Hosp Course 1. Cholelithiasis with likely cholecystitis -HIDA is positive, MRCP suggests acute Rosalie, no evidence of biliary dilatation or choledocholithiasis -Surgery consult with Dr Morrow appreciated, will likely need only Lap Rosalie -Echo and EKG as pt has an unclear Hx of a Cardiac issue 2. Abnormal liver ezymes-Improved -MRCP shows no e/o docolithiasis -GI consult appreciated, does not appear that an ERCP is indicated -Hep panel is negative 3. Mild leukocytosis-resolved PPx- SCD's Problems: Subjective 24 Hr Interval Summary Gastrointestinal: pain Exam/Review of Systems Vital Signs Vitals Vital Signs Date Time Temp Pulse Resp B/P Pulse Ox O2 Delivery O2 Flow Rate FiO2 05/24/16 07:49 98.0 63 16 138/65 98 05/23/16 00:28 Room Air Intake and Output 05/23/16 05/23/16 05/24/16 15:00 23:00 07:00 Intake Total 950 ml 1000 ml Output Total 3 ml 1300 ml Balance 947 ml -300 ml Exam Constitutional: alert, oriented Respiratory: clear to auscultation Cardiovascular: regular rate and rhythm Gastrointestinal: soft, tender, No distended Musculoskeletal: nl extremities to inspection Results Result Diagram: 05/24/16 0510 05/24/16 0510 Results 24 hrs Laboratory Tests Test 05/24/16 05:10 05/24/16 11:15 Alanine Aminotransferase (ALT/SGPT) 264 H Albumin 3.2 L Albumin/Globulin Ratio 0.88 Alkaline Phosphatase 152 H Anion Gap 14 Aspartate Amino Transf (AST/SGOT) 113 H Basophils # 0.0 Basophils % 0.7 Blood Urea Nitrogen 6 L Calcium Level 9.0 Carbon Dioxide Level 28 Chloride Level 108 Creatinine 0.71 Direct Bilirubin 0.00 Eosinophils # 0.2 Eosinophils % 3.8 Globulin 3.60 H Glucose Level 111 Hematocrit 39.5 Hemoglobin 13.1 Indirect Bilirubin 0.5 Lymphocytes # 2.3 Lymphocytes % 36.7 Magnesium Level 2.0 Mean Corpuscular Hemoglobin 29.4 Mean Corpuscular Hemoglobin Concent 33.2 Mean Corpuscular Volume 88.3 Mean Platelet Volume 8.5 Monocytes # 0.5 Monocytes % 7.8 Neutrophils # 3.2 Neutrophils % 51.0 Nucleated Red Blood Cells # 0.0 Nucleated Red Blood Cells % 0.0 Platelet Count 242 Potassium Level 4.6 Red Blood Count 4.48 Red Cell Distribution Width 13.6 Sodium Level 145 H Total Bilirubin 0.5 Total Protein 6.8 White Blood Count 6.2 Amylase Level 61 Hepatitis B Core Total Antibody NEGATIVE Hepatitis B Surface Antigen NEGATIVE Hepatitis C Antibody NEGATIVE Lipase 120 Medications Medications Current Medications Dextrose/Sodium Chloride (D5-1/2ns) 1,000 ml @ 100 mls/hr Q10H IV Last administered on 05/24/16 14:13; Admin Dose 100 MLS/HR; Start 05/23/16 at 02:00 Morphine Sulfate (morphine) 3 mg Q4H PRN IV PAIN; Start 05/23/16 at 02:00 Ondansetron HCl (Zofran Inj) 4 mg Q6H PRN IV NAUSEA AND/OR VOMITING; Start 05/23 at 02:00 Ketorolac Tromethamine (Toradol) 15 mg Q6H PRN IV PAIN; Start 05/23/16 at 02:00 ; Stop 05/26/16 at 01:59 Acetaminophen (Tylenol Supp) 650 mg Q6H PRN [place] FEVER GREATER THAN 100.4; Start 05/23/16 at 02:00 LUISITO NGUYEN May 24, 2016 18:16
[2016-05-24 19:00] VITALS: BP 123/61; RESP 16
--- NOTE | 2016-05-24 19:10 | QN ---
Documentation Comment D/W DR NGUYEN PT W A/P CHOLECYSTITIS PLAN PER DR JONES AND KATHLEEN FRAGA MD May 24, 2016 19:10
--- NOTE | 2016-05-24 20:18 | RADRPT ---
Echocardiogram Report Patient Name: IRAJ GUTIERREZ Gender: Female Date: 1960 Study Date: 24-May-2016 Fashion Patternmaker: Rochelle Ruby RDCS Location: 622 Ref. Physician: LUISITO NGUYEN Quality: Good Procedures: Transthoracic echocardiogram with complete 2D, M-Mode, and doppler examination. Indications: Pre-op. 2D/M Mode Doppler Measurement Value Normal Ranges Measurement Value Normal Ranges LVIDd 2D 4.6 3.5 - 5.6 cm AV Peak Emilio 1.1 m/sec LVIDs 2D 2.5 2.1 - 4.1 cm AV Peak PG 5.0 mmHg FS 2D 45.0 % LVOT Peak Emilio 1.0 m/sec LVPWd 2D 0.7 0.6 - 1.1 cm LVOT Peak PG 4.0 mmHg IVSd 2D 0.8 0.6 - 1.1 cm MV E Peak Emilio 0.6 m/sec IVS/LVPW 2D 1.0 MV A Peak Emilio 0.7 m/sec AoR Diam 2D 2.6 2.0 - 3.7 cm MV E/A 0.9 LA/Ao 2D 1 0 - 1 MV Decel Time 169 msec EDV 2D 96.1 cm3 MV E/A 0.9 ESV 2D 16.0 cm3 TR Peak Emilio 2.3 m/sec LA Dimen 2D 3.3 2.3 - 4.0 cm TR Peak PG 22.0 mmHg RVSP 25.0 mmHg Findings Left Ventricle: Normal left ventricular systolic function. Normal left ventricular cavity size. Normal left ventricular wall thickness. Ejection fraction is visually estimated at 60 %. Tissue Doppler/Mitral Doppler indices are consistent with impaired relaxation (Stage I diastolic dysfunction). Right Ventricle: Normal right ventricular size. Normal right ventricular systolic function. Left Atrium: The left atrium is normal in size. Right Atrium: The right atrium is normal in size. Mitral Valve: Normal appearance and function of the mitral valve with trace physiologic regurgitation. Aortic Valve: Normal appearance of the aortic valve. No significant aortic stenosis or insufficiency. Tricuspid Valve: Normal appearance of the tricuspid valve. Estimated peak PA systolic pressure 25 mmHg. There is mild tricuspid regurgitation. Pericardium: Normal pericardium with no significant pericardial effusion. Aorta: Normal aortic root. IVC: Normal size and normal respiratory collapse consistent with normal right atrial pressure. Conclusions 1.Normal left ventricular systolic function. Normal left ventricular cavity size. Normal left ventricular wall thickness. Ejection fraction is visually estimated at 60 %. Tissue Doppler/Mitral Doppler indices are consistent with impaired relaxation (Stage I diastolic dysfunction). 2.Normal appearance and function of the mitral valve with trace physiologic regurgitation. 3.Normal appearance of the tricuspid valve. Estimated peak PA systolic pressure 25 mmHg. There is mild tricuspid regurgitation. Electronically Signed By: Papa Newberry 24-May-2016 20:17:30 -0800 Patient Name: IRAJ GUTIERREZ Study Date: 24-May-2016 [id number]
[2016-05-25] VITALS (13 sets, daily range): BP systolic 100–132; BP diastolic 54–70; PULSE 61–84; RESP 14–20
[2016-05-25] MEDS: DEXTROSE 5%-0.45% NACL 1,000 ML IV SCH ×3 (02:38→13:40)
[2016-05-25 06:24] LABS: BASOPHILS % 0.6 % (0.0-2.0); EOSINOPHILS # 0.3 10^3/ul (0.0-0.5); EOSINOPHILS % 3.9 % (0.0-7.0); HEMOGLOBIN 13.6 g/dl (12.0-16.0); LYMPHOCYTES # 2.3 10^3/ul (0.8-2.9); LYMPHOCYTES % 32.3 % (15.0-51.0); MEAN CORPUSCULAR HEMOGLOBIN 29.5 pg (29.0-33.0); MEAN CORPUSCULAR HGB CONC 33.2 g/dl (32.0-37.0); MEAN PLATELET VOLUME 8.7 fl (7.4-10.4); MONOCYTE # 0.6 10^3/ul (0.3-0.9); MONOCYTES % 8.3 % (0.0-11.0); NEUTROPHIL # 3.9 10^3/ul (1.6-7.5); NEUTROPHILS % 54.9 % (39.0-77.0); PLATELET COUNT 258 10^3/UL (140-440); RED BLOOD COUNT 4.61 10^6/ul (4.20-5.40); RED CELL DISTRIBUTION WIDTH 13.3 % (11.5-14.5)
[2016-05-25 06:26] LABS: ALBUMIN 3.5 g/dl (3.3-4.9); POTASSIUM 4.2 mmol/L (3.5-5.1)
[2016-05-25 06:29] LABS: ALBUMIN/GLOBULIN RATIO 1.06; BILIRUBIN,INDIRECT 0.3 mg/dl (0-1.1); BILIRUBIN,TOTAL 0.3 mg/dl (0.2-1.3); CREATININE 0.71 mg/dl (0.44-1.00); TOTAL PROTEIN 6.8 g/dl (6.1-8.1)
[2016-05-25 06:51] LABS: CONDITION 1
[2016-05-25] MEDS ORDERED: BUPIVACAINE 0.25%/EPI (SDV) 30 ML INJ ONE (15:14)
[2016-05-25] MEDS ORDERED: MIDAZOLAM 1 MG/ML 2 ML INJ ONE (15:25)
--- NOTE | 2016-05-25 15:46 | OPR ---
Date/Time of Note Date/Time of Note DATE: 05/25/16 TIME: 15:46 Operative Report Operative Findings [facility] INPATIENT OPERATIVE NOTE PLACE OF SERVICE: [facility] DATE OF SURGERY: 05/25/2016 PREOPERATIVE DIAGNOSIS: 1. Acute cholecystitis 2. BMI 29.4. 3. Status post breast cyst removal. 4. Status post section. POSTOPERATIVE DIAGNOSIS: 1. Acute cholecystitis 2. BMI 29.4. 3. Status post breast cyst removal. 4. Status post section. OPERATION: 1. Laparoscopic cholecystectomy SURGEON: Shaun Morrow M.D. INDIVIDUAL PENSION ADVISER: None ANESTHESIA: General endotracheal tube anesthesia ANESTHESIOLOGIST: Mei Calderon M.D. BRIEF SUMMARY: An otherwise uncomplicated laparoscopic cholecystectomy was performed with findings of acute cholecystitis. BRIEF HISTORY: The patient is a very pleasant 55-year-old lady with comorbidity of BMI 29.4, known cholelithiasis, previous , and breast cyst removal, admitted through the emergency department at [facility] on with cholelithiasis, possible acute vs. chronic cholecystitis and elevated alk phos indicating possible choledocholithiasis. MRCP was negative. I met with the patient and family and counseled them regarding the possible options of treatment, and I strongly suggested a laparoscopic, possible open cholecystectomy. We reviewed the operation in detail as well as the risks, benefits, alternatives, and expected outcomes of this operation. After careful consideration of all the risks, benefits, and alternatives, the patient and family appeared to understand those risks and wished to proceed with surgery. For a detailed report of my consultation with patient and family, please refer to my separate consultation note. STATEMENT OF THE INFORMED CONSENT: The patient and family appeared to understand the risks of the operation to include, but not be limited to risk of postoperative pain and scar tissue, possible infection or bleeding requiring other interventions such as opening the wound, placement of drainage catheters, or other operative interventions; possible injury to surrounding to structures including bowel, bladder, bile duct, or blood vessels, or solid organs such as liver, kidney, or pancreas requiring other interventions or procedures; possible leakage of bile from surgical clip sites, suture lines, or worse, from common bile duct injury, causing significant increase in morbidity and mortality and requiring multiple interventions including but not limited to, placement of drainage catheters, imaging studies, as well as operative interventions; possible other source of sepsis such as urinary tract infections or pneumonias, or other sources of potentially life threatening problems such as deep venous thrombus formation causing pulmonary embolism, myocardial arrhythmias and infarctions, and even . After careful consideration of all their options, the patient and family appeared to understand and wished to proceed with surgery. DESCRIPTION OF PROCEDURE: After obtaining informed consent, the patient was brought into the operating room and was placed in a normal supine position, where successful general endotracheal tube anesthesia was performed. The patient 's abdominal skin was prepped and draped, from the nipple line down to the level of the groins, in the usual sterile fashion. Intravenous access was already in place, and appropriately chosen and dosed prophylactic intravenous antimicrobials were administered. We then called a surgical time-out where patient's identification, date of , nature of the operation, allergies, presence of intravenous antimicrobials, presence of needed equipment, and any other concerns were reviewed and agreed upon by all members of the operating room team. We then started the operation by placing a 5-mm skin incision in the right- upper quadrant, subcostal midclavicular line, and introduced a 5-mm [employer] trocar into the peritoneal space, visualizing all the layers of the abdominal wall as we entered. Note that there was no indication of any injury to underlying structures once we entered the peritoneum. We insufflated the abdominal cavity to a maximum pressure of 15 mmHg, again, confirmed lack of any injury to underlying structures prior to visualizing the rest of the abdominal cavity. We found the fundus of the gallbladder to be visible. There was no evidence of malignancy. No evidence of calcifications or significant issues with adhesions, or other abnormalities. The liver appeared to be healthy. With this information, we went a head and placed the other trocars under direct visualization, after injecting their sites with 0.25% Marcaine with epinephrine , placing a 5-mm trocar in the umbilical midline area, a 5-mm trocar in the right anterior axillary line, and a 12-mm trocar in the midline subxiphoid region. With our instruments in place, we had excellent visualization and access to the right-upper quadrant. We then we grasped the fundus of the gallbladder and pointed up towards the right-upper quadrant. We were then able to grasp the infundibulum and pull it out in order to expose the critical triangle of Calot. Due to significant inflammation, we decided to maximize the degree of safety of the operation by taking the gallbladder top down using cautery. We then performed meticulous dissection to identify and circumferentially isolate both the cystic duct and cystic artery, prior to transecting them between 2 surgical Endoclips, proximally and one distally on the cystic artery and 4 surgical endoclips proximally and one distally on the cystic duct, transecting both using cold scissors, and only after making sure that these were the only 2 structures going into the gallbladder. We then shaved the gallbladder off the gallbladder bed using cautery, and then delivered it out inside of an EndoCatch bag through the 12-mm trocar site without enlarging the fascia or contaminating the wound. The gallbladder was sent to Pathology for evaluation. Returning to the abdominal cavity, we ensured that there was adequate hemostasis and bile-stasis prior to removal of all of or equipment, including the pneumoperitoneum, and then reapproximating the 12-mm trocar site with one [id number] Vicryl suture, followed by washing the wounds with copious amounts of normal saline, and then reapproximating the skin using interrupted 4- 0 Monocryl sutures. Light dressing was then applied. At the end of the operation, both the sponge count and needle count were reportedly correct x2. The patient tolerated the procedure without any reported complications. ESTIMATED BLOOD LOSS: Less than 10 mL. BLOOD OR BLOOD PRODUCT TRANSFUSIONS: None to my knowledge. SPECIMENS: 1. Gallbladder COMPLICATIONS: None. DISPOSITION: Recovery area. Disclaimer: Inadvertent spelling and grammatical errors are likely due to EHR/ dictation software use and do not reflect on the quality of delivered patient care. SHAUN MORROW M.D. May 25, 2016 15:46 SHAUN MORROW M.D. May 25, 2016 15:46
[2016-05-25] MEDS ORDERED: ONDANSETRON 4 MG INJ IV PRN (16:30)
[2016-05-25] MEDS ORDERED: FENTAnyl 50 MCG/ML VIAL IV PRN (16:30)
[2016-05-25] MEDS ORDERED: METOCLOPRAMIDE 10 MG INJ IV PRN (16:30)
[2016-05-25] MEDS ORDERED: DIPHENHYDRAMINE 50 MG INJ IV PRN (16:30)
[2016-05-25] MEDS ORDERED: MEPERIDINE 25 MG INJ IV PRN (16:30)
[2016-05-25] MEDS ORDERED: morphine (1 MG/ML) 10ML SYRINGE IV PRN ×2 (16:30)
[2016-05-25] MEDS ORDERED: LIDOCAINE 2% (SDV) 5 ML INJ ONE (16:40)
[2016-05-25] MEDS ORDERED: GLYCOPYRROLATE 0.4 MG INJ ONE (16:40)
[2016-05-25] MEDS ORDERED: ROCURONIUM 50 MG INJ ONE (16:40)
[2016-05-25] MEDS ORDERED: PROPOFOL 20 ML ONE (16:41)
[2016-05-25] MEDS ORDERED: ONDANSETRON 4 MG INJ ONE (16:41)
[2016-05-25] MEDS ORDERED: NEOSTIGMINE 3 MG/3 ML SYRINGE ONE (16:41)
[2016-05-25] MEDS ORDERED: CEFAZOLIN 1 GM INJ ONE (16:41)
--- NOTE | 2016-05-25 16:41 | PN ---
Date/Time of Note Date/Time of Note DATE: 05/25/16 TIME: 16:39 Assessment/Plan VTE Prophylaxis VTE Prophylaxis Intervention: other Lines/Catheters IV Catheter Type (from [facility]): [place]ine Lock Urinary Cath still in place: No Assessment/Plan Chief Complaint/Hosp Course A/P S/P LAP ALICIA ABN LFT PLAN PER SURGERY LABS Problems: Subjective 24 Hr Interval Summary Subjective hx not possible: other (s/p lap alicia) Cardiovascular: no complaints Gastrointestinal: no complaints Genitourinary: no complaints Exam/Review of Systems Vital Signs Vitals Vital Signs Date Time Temp Pulse Resp B/P Pulse Ox O2 Delivery O2 Flow Rate FiO2 05/25/16 07:34 97.8 62 16 115/66 95 05/23/16 00:28 Room Air Intake and Output 05/24/16 05/24/16 05/25/16 15:00 23:00 07:00 Intake Total 400 ml 600 ml Output Total 1000 ml 500 ml Balance -600 ml 100 ml Exam ENMT: nl external ears & nose Neck: supple Respiratory: clear to auscultation Gastrointestinal: soft Results Result Diagram: 05/25/16 0540 05/25/16 0540 Results 24 hrs Laboratory Tests Test 05/25/16 05:40 Alanine Aminotransferase (ALT/SGPT) 192 H Albumin 3.5 Albumin/Globulin Ratio 1.06 Alkaline Phosphatase 151 H Anion Gap 14 Aspartate Amino Transf (AST/SGOT) 64 H Basophils # 0.0 Basophils % 0.6 Blood Urea Nitrogen 6 L Calcium Level 9.0 Carbon Dioxide Level 28 Chloride Level 106 Creatinine 0.71 Direct Bilirubin 0.00 Eosinophils # 0.3 Eosinophils % 3.9 Globulin 3.30 H Glucose Level 114 Hematocrit 41.0 Hemoglobin 13.6 Indirect Bilirubin 0.3 Lymphocytes # 2.3 Lymphocytes % 32.3 Mean Corpuscular Hemoglobin 29.5 Mean Corpuscular Hemoglobin Concent 33.2 Mean Corpuscular Volume 89.0 Mean Platelet Volume 8.7 Monocytes # 0.6 Monocytes % 8.3 Neutrophils # 3.9 Neutrophils % 54.9 Nucleated Red Blood Cells # 0.0 Nucleated Red Blood Cells % 0.0 Platelet Count 258 Potassium Level 4.2 Red Blood Count 4.61 Red Cell Distribution Width 13.3 Sodium Level 144 Total Bilirubin 0.3 Total Protein 6.8 White Blood Count 7.0 Medications Medications Current Medications Dextrose/Sodium Chloride (D5-1/2ns) 1,000 ml @ 100 mls/hr Q10H IV Last administered on 05/25/16t 13:40; Admin Dose 100 MLS/HR; Start 05/23/16 at 02:00 Morphine Sulfate (morphine) 3 mg Q4H PRN IV PAIN; Start 05/23/16 at 02:00 Ondansetron HCl (Zofran Inj) 4 mg Q6H PRN IV NAUSEA AND/OR VOMITING; Start 05/23 at 02:00 Ketorolac Tromethamine (Toradol) 15 mg Q6H PRN IV PAIN; Start 05/23/16 at 02:00 ; Stop 05/26/16 at 01:59 Acetaminophen (Tylenol Supp) 650 mg Q6H PRN [place] FEVER GREATER THAN 100.4; Start 05/23/16 at 02:00 KATHLEEN ESTRADA MD May 25, 2016 16:41
[2016-05-25] MEDS ORDERED: HYDROCODONE/APAP (5/325) TAB PO PRN ×2 (17:00)
[2016-05-25] MEDS ORDERED: NA PHOSPHATE/BIPHOS 133 ML ENEMA PR PRN (17:00)
[2016-05-25] MEDS ORDERED: HYDROmorphONE 1 MG/ML SYG IV PRN (17:00)
[2016-05-25] MEDS ORDERED: BISACODYL 10 MG SUPP PR PRN (17:00)
[2016-05-25] MEDS ORDERED: DOCUSATE SODIUM 100 MG CAP PO PRN (17:00)
[2016-05-25] MEDS: D5W-0.45 NACL + KCL 20 MEQ 1,000 ML IV SCH (18:03)
[2016-05-25] MEDS: ONDANSETRON 4 MG INJ IV PRN (18:16)
[2016-05-26] MEDS: HYDROmorphONE 1 MG/ML SYG IV PRN ×3 (01:33→15:42)
[2016-05-26] MEDS: ONDANSETRON 4 MG INJ IV PRN (01:33)
[2016-05-26] MEDS: D5W-0.45 NACL + KCL 20 MEQ 1,000 ML IV SCH ×4 (02:40→22:45)
[2016-05-26 07:18] LABS: POTASSIUM 4.3 mmol/L (3.5-5.1)
[2016-05-26 07:20] LABS: ALBUMIN/GLOBULIN RATIO 1.03; BILIRUBIN,INDIRECT 0.2 mg/dl (0-1.1); BILIRUBIN,TOTAL 0.2 mg/dl (0.2-1.3); CREATININE 0.81 mg/dl (0.44-1.00); TOTAL PROTEIN 5.9 g/dl (6.1-8.1)
[2016-05-26 07:21] LABS: CALCIUM 8.4 mg/dl (8.4-10.2)
[2016-05-26 08:04] VITALS: BP 95/58; RESP 18
[2016-05-26] MEDS: FAMOTIDINE 20 MG INJ IV SCH (09:15)
[2016-05-26] MEDS: ENOXAPARIN 40 MG/0.4 ML SYG SC SCH (09:43)
[2016-05-26 11:49] LABS: BASOPHILS % 0.3 % (0.0-2.0); EOSINOPHILS % 0.6 % (0.0-7.0); HEMATOCRIT 37.8 % (37.0-47.0); HEMOGLOBIN 12.3 g/dl (12.0-16.0); LYMPHOCYTES % 24.1 % (15.0-51.0); MEAN CORPUSCULAR HEMOGLOBIN 29.4 pg (29.0-33.0); MEAN CORPUSCULAR HGB CONC 32.5 g/dl (32.0-37.0); MEAN CORPUSCULAR VOLUME 90.4 fl (82.0-101.0); MEAN PLATELET VOLUME 10.9 fl (7.4-10.4); MONOCYTES % 8.7 % (0.0-11.0); NEUTROPHILS % 65.8 % (39.0-77.0); PLATELET COUNT 254 10^3/UL (140-440); RED BLOOD COUNT 4.18 10^6/ul (4.20-5.40); RED CELL DISTRIBUTION WIDTH 14.4 % (11.5-14.5)
[2016-05-26 11:50] LABS: EOSINOPHILS # 0.1 10^3/ul (0.0-0.5); LYMPHOCYTES # 2.7 10^3/ul (0.8-2.9); NEUTROPHIL # 7.2 10^3/ul (1.6-7.5)
--- NOTE | 2016-05-26 12:18 | PN ---
Date/Time of Note Date/Time of Note DATE: 05/26/16 TIME: 12:17 Assessment/Plan VTE Prophylaxis VTE Prophylaxis Intervention: other Lines/Catheters IV Catheter Type (from Nrs): Peripheral IV Urinary Cath still in place: No Assessment/Plan Chief Complaint/Hosp Course A/P S/P LAP PAOLA ABN LFT high wbd PLAN PER SURGERY LABS Problems: Subjective 24 Hr Interval Summary Gastrointestinal: pain (+) Exam/Review of Systems Vital Signs Vitals Vital Signs Date Time Temp Pulse Resp B/P Pulse Ox O2 Delivery O2 Flow Rate FiO2 05/26/16 08:04 98.8 73 18 95/58 94 05/25/16 18:21 Room Air Intake and Output 05/25/16 05/25/16 05/26/16 15:00 23:00 07:00 Intake Total 250 ml 750 ml 1000 ml Output Total 1010 ml Balance 250 ml -260 ml 1000 ml Exam Respiratory: clear to auscultation Cardiovascular: regular rate and rhythm Gastrointestinal: soft Genitourinary - Female: nl adnexae Results Result Diagram: 05/26/16 0335 05/26/16 0535 Results 24 hrs Laboratory Tests Test 05/26/16 03:35 05/26/16 05:35 Basophils # 0.0 Basophils % 0.3 Eosinophils # 0.1 Eosinophils % 0.6 Hematocrit 37.8 Hemoglobin 12.3 Lymphocytes # 2.7 Lymphocytes % 24.1 Mean Corpuscular Hemoglobin 29.4 Mean Corpuscular Hemoglobin Concent 32.5 Mean Corpuscular Volume 90.4 Mean Platelet Volume 10.9 #H Monocytes # 1.0 H Monocytes % 8.7 Neutrophils # 7.2 Neutrophils % 65.8 Nucleated Red Blood Cells # 0.0 Nucleated Red Blood Cells % 0.0 Platelet Count 254 Red Blood Count 4.18 L Red Cell Distribution Width 14.4 White Blood Count 11.0 #H Alanine Aminotransferase (ALT/SGPT) 138 H Albumin 3.0 L Albumin/Globulin Ratio 1.03 Alkaline Phosphatase 114 Anion Gap 14 Aspartate Amino Transf (AST/SGOT) 50 H Blood Urea Nitrogen 5 L Calcium Level 8.4 Carbon Dioxide Level 26 Chloride Level 105 Creatinine 0.81 Direct Bilirubin 0.00 Globulin 2.90 Glucose Level 95 Indirect Bilirubin 0.2 Potassium Level 4.3 Sodium Level 141 Total Bilirubin 0.2 Total Protein 5.9 L Medications Medications Current Medications Ondansetron HCl (Zofran Inj) 4 mg Q6H PRN IV NAUSEA AND/OR VOMITING Last administered on 05/26/16 01:33; Admin Dose 4 MG; Start 05/23/16 at 02:00 Acetaminophen 650 mg 650 mg Q6H PRN IN FEVER GREATER THAN 100.4; Start 05/23/16 at 02:00 Potassium Chloride/Dextrose/ Sod Cl (D5-1/2ns + KCl 20 Meq) 1,000 ml @ 100 mls/ hr Q10H IV Last administered on 05/26/16 03:59; Admin Dose 100 MLS/HR; Start at 16:45 Acetaminophen/ Hydrocodone Bitart (Allen (5/325)) 1 tab Q4H PRN PO PAIN LEVEL 4 -7; Start 05/25/16 at 17:00 Acetaminophen/ Hydrocodone Bitart (Allen (5/325)) 2 tab Q4H PRN PO PAIN LEVEL 7 -10; Start 05/25/16 at 17:00 Hydromorphone HCl (Dilaudid) 0.5 mg Q2H PRN IV PAIN; Start 05/25/16 at 17:00 Hydromorphone HCl (Dilaudid) 1 mg Q2H PRN IV PAIN Last administered on 09:24; Admin Dose 1 MG; Start 05/25/16 at 17:00 Docusate Sodium (Colace) 100 mg BID PRN PO CONSTIPATION; Start 05/25/16 at 17:00 Bisacodyl (Dulcolax Supp) 10 mg BID PRN IN CONSTIPATION; Start 05/25/16 at 17:00 Sodium Biphosphate/ Sodium Phosphate (Fleet Enema) 133 ml BID PRN IN CONSTIPATION; Start 05/25/16 at 17:00 Famotidine (Pepcid Iv) 20 mg DAILY IV Last administered on 05/26/16 09:15; Admin Dose 20 MG; Start 05/26/16 at 09:00 Enoxaparin Sodium (Lovenox) 40 mg DAILY SC Last administered on 05/26/16 09:43 ; Admin Dose 40 MG; Start 05/26/16 at 09:00 KATHLEEN ESTRADA MD May 26, 2016 12:18
--- NOTE | 2016-05-26 15:05 | PN ---
Date/Time of Note Date/Time of Note DATE: 05/26/16 TIME: 15:03 Assessment/Plan Lines/Catheters IV Catheter Type (from Nrs): Peripheral IV Martinez in Place (from Nrs): No Assessment/Plan Assessment/Plan [facility] Progress Note Date of Service: 05/26/16 Today's Impression & Plan: Overall stable. Awaiting results of MRCP to schedule patient for either ERCP or for lap alicia only. Answered all questions. With above assessment, I've recommended the following for today: 1. D/c home when medically stable 2. D/c instructions: Please call [phone] if any of fever, nausea, vomiting, discharge from wound , wound redness, increase or sudden pain, blood in stool or vomit, or any other unusual signs or symptoms. Also, please call the same number in a few days to schedule an appointment for your follow up visit. Patient may remove dressings tomorrow. Showers OK starting tomorrow. No swimming , hot tub or bath for 2 weeks. No lifting more than 25 lbs for 8 weeks. Thank you again for your great care of this very pleasant patient and wonderful family. If there are any questions, please feel free to call me at [phone]. TOTAL VISIT TIME: 20 minutes of which more than half was spent in [id number] discussion with the patient, possibly including family, as well as coordination of care between multiple physicians and providers. Disclaimer: Inadvertent spelling or grammatical errors are likely due to EHR/ dictation software use and do not reflect on the overall quality of patient care. Updated Clinical Summary: The patient is a very pleasant 55-year-old lady with comorbidity of BMI 29.4, known cholelithiasis, previous , and breast cyst removal, admitted through the emergency department at [facility] on 05/22/15 with cholelithiasis, possible acute vs. chronic cholecystitis and elevated alk phos indicating possible choledocholithiasis. MRCP was negative. S/p lap alicia . Comorbidities: 1. Acute cholecystitis, s/p lap alicia 05/25/16 2. BMI 29.4 3. Status post breast cyst removal 4. Status post section Subjective: No major events or complaints; no major abd pain and under control with medications; no n/v/d; no sob or cp; + flatus; - BM; + activity Objective: Vitals: See below Exam: GENERAL: On exam, the patient was laying in bed and appeared to be comfortable and in no acute distress. ABDOMEN: Soft, minimally tender and nondistended. There are no peritoneal signs or guarding. Dressings c/d/i w/o obvious underlying e/e/d/h. SKIN: Skin appears to be pink and feels warm to touch. NEUROLOGIC: Patient is awake, alert, and follows commands appropriately. Exam/Review of Systems Vital Signs Vitals Vital Signs Date Time Temp Pulse Resp B/P Pulse Ox O2 Delivery O2 Flow Rate FiO2 05/26/16 08:04 98.8 73 18 95/58 94 05/25/16 18:21 Room Air Intake and Output 05/25/16 05/25/16 05/26/16 15:00 23:00 07:00 Intake Total 250 ml 750 ml 1000 ml Output Total 1010 ml Balance 250 ml -260 ml 1000 ml Results Result Diagram: 05/26/16 0335 05/26/16 0535 SHAUN LAUGHLIN M.D. May 26, 2016 15:05
[2016-05-26 20:00] VITALS: BP 113/57; PULSE 73; RESP 20
[2016-05-27] MEDS: D5W-0.45 NACL + KCL 20 MEQ 1,000 ML IV SCH ×2 (01:15→12:20)
[2016-05-27 06:26] LABS: ALBUMIN 3.1 g/dl (3.3-4.9); POTASSIUM 4.2 mmol/L (3.5-5.1)
[2016-05-27 06:28] LABS: CREATININE 0.67 mg/dl (0.44-1.00)
[2016-05-27 06:29] LABS: ALBUMIN/GLOBULIN RATIO 1.03; BILIRUBIN,INDIRECT 0.3 mg/dl (0-1.1); BILIRUBIN,TOTAL 0.3 mg/dl (0.2-1.3); TOTAL PROTEIN 6.1 g/dl (6.1-8.1)
[2016-05-27 06:30] LABS: CALCIUM 8.8 mg/dl (8.4-10.2)
[2016-05-27 07:40] VITALS: BP 116/68; PULSE 75; RESP 18
[2016-05-27] MEDS: FAMOTIDINE 20 MG INJ IV SCH (08:13)
[2016-05-27] MEDS: ENOXAPARIN 40 MG/0.4 ML SYG SC SCH (08:16)
[2016-05-27 12:17] VITALS: BP 128/76; PULSE 79
--- NOTE | 2016-05-27 13:26 | PN ---
Date/Time of Note Date/Time of Note DATE: 05/27/16 TIME: 13:24 Assessment/Plan Lines/Catheters IV Catheter Type (from Nrsg): Peripheral IV Martinez in Place (from Nrs): No Assessment/Plan Assessment/Plan [facility] Progress Note Date of Service: 05/27/16 Today's Impression & Plan: Overall stable. Ok to d/c from my standpoint. I will follow from periphery. With above assessment, I've recommended the following for today: 1. D/c home when medically stable 2. D/c instructions: Please call [phone] if any of fever, nausea, vomiting, discharge from wound , wound redness, increase or sudden pain, blood in stool or vomit, or any other unusual signs or symptoms. Also, please call the same number in a few days to schedule an appointment for your follow up visit. Patient may remove dressings tomorrow. Showers OK starting tomorrow. No swimming , hot tub or bath for 2 weeks. No lifting more than 25 lbs for 8 weeks. Thank you again for your great care of this very pleasant patient and wonderful family. If there are any questions, please feel free to call me at [phone]. TOTAL VISIT TIME: 20 minutes of which more than half was spent in [id number] discussion with the patient, possibly including family, as well as coordination of care between multiple physicians and providers. Disclaimer: Inadvertent spelling or grammatical errors are likely due to EHR/ dictation software use and do not reflect on the overall quality of patient care. Updated Clinical Summary: The patient is a very pleasant 55-year-old lady with comorbidity of BMI 29.4, known cholelithiasis, previous , and breast cyst removal, admitted through the emergency department at [facility] on 05/22/15 with cholelithiasis, possible acute vs. chronic cholecystitis and elevated alk phos indicating possible choledocholithiasis. MRCP was negative. S/p lap alicia . Comorbidities: 1. Acute cholecystitis, s/p lap alicia 05/25/16 2. BMI 29.4 3. Status post breast cyst removal 4. Status post section Subjective: No major reported events or complaints; no major reported abd pain and under control with medications; no n/v/d; no sob or cp; + flatus; + BM; + activity Objective: Vitals: See below Exam: Patient not available for exam. D/w her . Exam/Review of Systems Vital Signs Vitals Vital Signs Date Time Temp Pulse Resp B/P Pulse Ox O2 Delivery O2 Flow Rate FiO2 05/27/16 12:17 79 128/76 05/27/16 07:40 98.0 18 96 Room Air Intake and Output 05/26/16 05/26/16 05/27/16 15:00 23:00 07:00 Intake Total 900 ml 420 ml 1500 ml Balance 900 ml 420 ml 1500 ml Results Result Diagram: 05/26/16 0335 05/27/16 0512 SHAUN LAUGHLIN M.D. May 27, 2016 13:26
[2016-05-27 13:45] LABS: BASOPHILS % 0.4 % (0.0-2.0); CONDITION 1; EOSINOPHILS # 0.1 10^3/ul (0.0-0.5); EOSINOPHILS % 1.6 % (0.0-7.0); HEMATOCRIT 38.5 % (37.0-47.0); HEMOGLOBIN 12.4 g/dl (12.0-16.0); LYMPHOCYTES # 3.2 10^3/ul (0.8-2.9); LYMPHOCYTES % 35.9 % (15.0-51.0); MEAN CORPUSCULAR HEMOGLOBIN 29.1 pg (29.0-33.0); MEAN CORPUSCULAR HGB CONC 32.1 g/dl (32.0-37.0); MEAN CORPUSCULAR VOLUME 90.6 fl (82.0-101.0); MEAN PLATELET VOLUME 8.9 fl (7.4-10.4); MONOCYTE # 0.7 10^3/ul (0.3-0.9); MONOCYTES % 8.1 % (0.0-11.0); NEUTROPHIL # 4.8 10^3/ul (1.6-7.5); PLATELET COUNT 226 10^3/UL (140-440); RED BLOOD COUNT 4.25 10^6/ul (4.20-5.40); RED CELL DISTRIBUTION WIDTH 13.9 % (11.5-14.5); UNCORRECTED WBC 8.9 10^3/ul (4.8-10.8); WHITE BLOOD COUNT 8.9 10^3/ul (4.8-10.8)
--- NOTE | 2016-05-27 15:02 | PDOCDIS ---
Discharge Instructions CONDITION Patient Condition: Stable HOME CARE INSTRUCTIONS: Diet Instructions: Low Fat /Cholesterol ACTIVITY: Activity Restrictions: Slowly Increase Activity FOLLOW UP/APPOINTMENTS Appointments see own pcp [address] menendez 1 wks KATHLEEN ESTRADA MD May 27, 2016 15:02
[2016-05-27] MEDS ORDERED: FAMO-18 PO (15:05)
[2016-05-27] MEDS ORDERED: DULR PR (15:05)
[2016-05-28] MEDS ORDERED: FAMOTIDINE 20 MG TAB PO SCH (09:00)
--- NOTE | 2016-05-30 21:30 | QN ---
Documentation Comment [id number] KATHLEEN ESTRADA MD May 30, 2016 21:30
--- NOTE | 2016-05-31 03:50 | DS ---
DATE OF ADMISSION: 05/22/2016 DATE OF DISCHARGE: 05/27/2016 HISTORY OF PRESENT ILLNESS AND HOSPITAL COURSE: The patient was admitted with the diagnosis of abdo andrew pain and acute cholecystitis. The patient had a in the past. She underwent laparos copic cholecystectomy. Postoperative course was complicated with pain. The patient had initial dif ficulty ambulating, but eventually she was eating and drinking and ambulating well. She was cleared to be discharged. DISCHARGE DIAGNOSES: 1. Acute cholecystectomy. 2. Leukocytosis. 3. Electrolyte imbalance. DISCHARGE MEDICATIONS: The patient is to continue to take 1. Bisacodyl. 2. Pepcid. 3. Hydrocodone. 4. Zofran. FOLLOWUP: With Dr. Morrow and the patient's own primary care doctor as an outpatient. Dictated By: KATHLEEN BOCANEGRA/IGNACIO Conf#: [id number] DID#: [id number]
== END 2016-05-27 19:15 | disposition home or self-care (01) | DRG 419 ==
LOC: E/R 17:56 → UNDOADMIN 23:38 → MS2 23:38
PROVIDERS: ADMIT Internal Medicine Nephrology; ATTEND Internal Medicine Nephrology
PROC: CF2YYZZ Tomographic (Tomo) Nuclear Medicine Imaging of Hepatobiliary System and Pancreas using Other Radionuclide (ICD-10-PCS; 2016-05-23)
PROC: 0FT44ZZ Resection of Gallbladder, Percutaneous Endoscopic Approach (ICD-10-PCS; principal; 2016-05-25 15:30)
DX: K80.12 Calculus of gallbladder with acute and chronic cholecystitis without obstruction (principal); E87.8 Other disorders of electrolyte and fluid balance, not elsewhere classified
CPT/HCPCS: 36415; 74181; 78226; 80053; 82150; 83690; 83735; 85025; 86704; 86709; 86803; 87340; 88304; 93306; 96374; 96375; A9537; J0690; J1170; J1650; J2250; J2270; J2405; J2710; J3010; J3480; J7030; J7042

== ENCOUNTER 2016-07-25 10:43 | Outpatient (CLI) | payer OTHER ==
[~2016-07-25] VITALS: Ht 165.1 cm; Wt 75.0 kg
[~2016-07-25 10:43] MED LIST changes: +BISA10SU75 PR; +FAMO-18 PO; -NAPR-688 PO
[2016-07-25 10:46] VITALS: BP 149/71; PULSE 70; RESP 16; Ht 165.1 cm; Wt 75.0 kg
--- NOTE | 2016-07-25 16:55 | PN ---
Date/Time of Note Date/Time of Note DATE: 07/25/16 TIME: 16:47 Assessment/Plan Assessment/Plan Assessment/Plan [facility] Progress Note Date of Service: 07/25/16 Today's Impression & Plan: Overall stable and doing well. No major post operative complications or wound problems. With above assessment, I've recommended the following for today: 1. F/u with PCP 2. F/u with us prn Thank you again for your great care of this very pleasant patient and wonderful family. If there are any questions, please feel free to call me at [phone]. TOTAL VISIT TIME: 20 minutes of which more than half was spent in [id number] discussion with the patient, possibly including family, as well as coordination of care between multiple physicians and providers. Disclaimer: Inadvertent spelling or grammatical errors are likely due to EHR/ dictation software use and do not reflect on the overall quality of patient care. Updated Clinical Summary: The patient is a very pleasant 55-year-old lady with comorbidity of BMI 29.4, known cholelithiasis, previous , and breast cyst removal, admitted through the emergency department at [facility] on 05/22/15 with cholelithiasis, possible acute vs. chronic cholecystitis and elevated alk phos indicating possible choledocholithiasis. MRCP was negative. S/p lap alicia . Comorbidities: 1. Acute cholecystitis, s/p lap alicia 05/25/16 2. BMI 29.4 3. Status post breast cyst removal 4. Status post section Subjective: No major reported events or complaints; no major abd pain and no longer on pain medications; no n/v/d; no sob or cp; + flatus; + BM; + activity Objective: Vitals: See below Exam: GENERAL: The patient is a well-developed, well-nourished lady in no apparent distress. She is alert and oriented x3. BMI 27.5 HEENT: Head is normocephalic and atraumatic. Extraocular muscles are grossly intact. Pupils are equal, round, and reactive to light and accommodation. Nares appeared normal. Mouth is well hydrated and without lesions. Dentition is fair. Mucous membranes are moist. Posterior pharynx clear of any exudate or lesions. ABDOMEN: Soft, nontender, and nondistended. No hepatosplenomegaly, no evidence of ascites, engorged subutaneous veins or Caput Medusae. No peritoneal signs or guarding. Incisions c/d/i w/o e/e/d/h. EXTREMITIES: Without any cyanosis, clubbing, rash, lesions or edema. NEUROLOGIC: Awake, alert, and follows commands. SKIN: Appears pink and feels warm to touch. Exam/Review of Systems Vital Signs Vitals Vital Signs Date Time Temp Pulse Resp B/P Pulse Ox O2 Delivery O2 Flow Rate FiO2 07/25/16 10:46 97.9 70 16 149/71 98 Room Air SHAUN LAUGHLIN M.D. Jul 25, 2016 16:55
== END 2016-07-25 17:00 | disposition home or self-care (01) ==
LOC: HPC 10:43
PROVIDERS: ATTEND Transplant Surgery
DX: K81.0 Acute cholecystitis (principal)
CPT/HCPCS: G0463